=== PATIENT | female | born 1955 | race Caucasian/White ===

== ENCOUNTER → 2020-09-26 | Outpatient (CLI) | payer MEDICARE, OTHER ==
[~2020-09-26] MED LIST: ALLEGRA ALLERG180 MG PO; ALLEGRA180 MG PO; ASA5UEC PO; ASA81BEC PO; BENADRYL25 MG PO; CYCLOBENZAPRINE10 MG PO; FISH OIL 1,001000 M2 PO; FISHOIL; FLAXSEED OIL1000 MG PO; FLEXERIL PO; HYDROCODONE-AP1 EAC6 PO; IBUPROFEN; IBUPROFEN 200200 M1 PO; IBUPROFEN 600600 M1 PO; LEXAPRO 10 MG T10 M1 PO; LOPRESSOR PO; LOPRESSOR50 PO; MULTIVITAMINS PO; NITROGLYCERIN0.4 MG PO; NITROSTAT0.4 M1 SUBLING; OMEPRAZOLE20 MG PO; PANTOPRAZOLE SO40 M1 PO; PLAVIX 75 MG TA75 MG PO; PRISTIQ50 M1 PO; PROTONIX40 M1 PO; PROTONIX40 MG PO; RESTASIS1 EACH OP; SIMVASTATIN40 MG PO; TOPAMAX 25 MG T25 M1 PO; TOPROL XL25 MG PO; TOPROL XL50 MG PO; VITAMIN D3; VITAMIN D3400 UNI2 PO; VIVANCE PO; VYVANSE50 MG PO; VYVANSE60 MG PO; WELLBUTRIN XL150 MG; XANAX 0.5 MG0.5 MG PO
== END ==
LOC: M.MRI 07:31
PROVIDERS: ATTEND Family Medicine
DX: M43.16 Spondylolisthesis, lumbar region (principal); M51.36 Other intervertebral disc degeneration, lumbar region; M47.26 Other spondylosis with radiculopathy, lumbar region

== ENCOUNTER 2020-10-17 03:49 | Observation (INO) | payer MEDICARE, OTHER ==
[2020-10-17] VITALS (13 sets, daily range): BP systolic 116–143; BP diastolic 59–74
[~2020-10-17] VITALS: Ht 160 cm; Wt 61.2 kg
[2020-10-17] MEDS ORDERED: BENADRYL25 MG PO (04:01)
[2020-10-17 04:41] LABS: ABSOLUTE BASOPHILS 0.1 thou/uL (0.0-0.2); ABSOLUTE EOSINOPHILS 0.3 thou/uL (0.0-0.7); ABSOLUTE LYMPHOCYTES 1.9 thou/uL (0.8-5.3); ABSOLUTE MONOCYTES 0.5 thou/uL (0.0-1.2); ABSOLUTE NEUTROPHILS 2.1 thou/uL (1.6-8.1); EOSINOPHILS 6.9 %; HEMATOCRIT 41.2 % (37.0-47.0); LYMPHOCYTES 38.4 %; MCH 31.6 pg (26.0-34.0); MCV 92.9 fL (80.0-100.0); MONOCYTES 9.5 %; MPV 7.5 fl. (7.2-11.1); NUCLEATED RBCS 0 /100WBC; PLATELET COUNT* 173 thou/uL (150-400); POLYS 44.2 %; RBC 4.44 mil/uL (4.20-5.00); RDW-CV 13.6 % (10.5-14.5); WBC 4.8 thou/uL (4.0-11.0)
[2020-10-17 04:48] LABS: CALCIUM 8.4 mg/dL (8.5-10.1); CREATININE 0.9 mg/dL (0.6-1.3); POTASSIUM 3.9 mmol/L (3.5-5.1)
[2020-10-17 04:49] LABS: PROTIME 10.9 Seconds (9.20-11.50)
[2020-10-17 05:01] LABS: ALBUMIN 3.4 g/dL (3.4-5.0); MAGNESIUM 2.1 mg/dL (1.8-2.4); TOTAL BILIRUBIN 0.3 mg/dL (<0.1-1.0); TOTAL PROTEIN 6.8 g/dL (6.4-8.2)
[2020-10-17 07:33] LABS: URINE BILIRUBIN NEGATIVE (Negative); URINE BLOOD NEGATIVE (Negative); URINE CLARITY CLEAR; URINE COLOR YELLOW; URINE GLUCOSE-RANDOM NEGATIVE (Negative); URINE KETONES NEGATIVE (Negative); URINE LEUKOCYTES-REFLEX NEGATIVE (Negative); URINE NITRITE-REFLEX NEGATIVE (Negative); URINE PROTEIN NEGATIVE (Negative); URINE UROBILINOGEN 0.2 E.U./dl (0.2-1.0)
--- NOTE | 2020-10-17 11:39 | EKG ---
[place] [address] ELECTROCARDIOGRAM REPORT Name: NYASIA ROSA Room: [address] ADM IN .R.#: [id number] Admission: 10/17/20 Attend Phys: Luis Camarillo Discharge: Date of : 53 Date of Service: 10/17/20 0352 Report #: [id number] THIS REPORT FOR: //name// [facility] ED Test Date: 2020-10-17 Test Time: 03:52:14 Pat Name: NYASIA ROSA Department: Room: [facility] Gender: F [place] Technician: ROBERT : 1955 Requested By: Alma Ray Order Number: [id number] MD: Servando Markham Measurements Intervals [place] Rate: 57 P: 49 CA: 153 QRS: -26 QRSD: 92 T: 44 QT: 435 QTc: 424 Interpretive Statements Sinus rhythm Borderline left axis deviation Compared to ECG 02/11/2017 18:35:17 No significant changes Electronically Signed On 10-17-2020 11:39:00 CDT by Servando Markham [email or web address] <ELECTRONICALLY SIGNED> By: Servando Markham MD, FAC 10/17/20 1139 0352 [id number] Servando Markham MD, [facility] /EPI
[2020-10-17] MEDS ORDERED: MELOXICAM15 MG PO (11:40)
[2020-10-17] MEDS ORDERED: FLONASE 0.05%50 MCG NASAL (11:43)
--- NOTE | 2020-10-17 15:33 | CARD ---
[address] [address] CARDIAC CATH REPORT Name: NYASIA ROSA Room: [address] [place] .R.#: [id number] Admission: 10/17/20 Attend Phys: Chelsy Vaca Discharge: Date of : 53 Report #: [id number] THIS REPORT FOR: cc: Erasto Langley MD, Anthony MD Blick, David R. MD [facility] ~ APPROVED REPORT Study performed: 10/17/2020 12:57:44 Patient Details Patient Status: In-Patient Room #: The patient is a 64 year-old female Event Personnel Servando Markham Curb Attendant, Nikki Saini RN Towel Sorter, Kwame Swanson RTR Scrub, Stacy Gracia RTR Monitor Procedures Performed Art Access - R radial artery , Left Heart Cath w/or w/o Coronaries LHC , FFR , Hemostasis with Hemoband Indication Chest pain Risk Factors Cerebrovascular Disease, Hypercholesterolemia, Coronary Artery DiseaseHypertension Previous Procedures/Diagnoses Previous PCI Admission/Lab Medications/Medications given during procedure Heparin Unfract., Nitroglycerin IA 200 mcg, Verapamil IA 2.5 mg, Heparin IV 3100 units, Nitroglycerin IC 150 mcg, Adenosine IV 17 mg, Nitroglycerin IA 200 mcg, Verapamil IA 2.5 mg Procedure Narrative The patient was brought electively to the Cardiac Catheterization Laboratory and was prepped and draped in a sterile manner. The right wrist was infiltrated with 2% Lidocaine subcutaneous anesthesia. IV conscious sedation was used throughout procedure with appropriate monitoring and was performed in the presence of a registered nurse who was an independent trained [place] [address] CARDIAC CATH REPORT Name: NYASIA ROSA Room: [address]#: [id number] Admission: 10/17/20 Attend Phys: Chelsy Vaca Discharge: Date of : 53 Report #: [id number] performing the procedure. A 6F Slender Maunie sheath was inserted into the right radial artery. Coronary angiography was performed using coronary diagnostic catheters. The right coronary system was accessed and visualized with a 6FJR4 catheter. The left coronary system was accessed and visualized with a 6F JL3.5 and 6F JL4 catheter. The left ventricle was accessed and visualized with a 6F Pigtail catheter. Left ventricular/Aortic Valve gradient assessed via catheter pullback. Left ventriculogram was performed in EMMANUEL projection. Closure device was deployed with a 6 Fr Radial Vasc band 24 cm. The patient tolerated the procedure well and there were no complications associated with the procedure. There was no hematoma. Performed FFR on RCA. Baseline FFR= 0.91 After 2 minutes of IC Adensoine, FFR dropped to minimum of 0.86. Unable to cannulate LM with jl4 catheter. Intraoperative Conscious Sedation Sedation start time: 13:37 Case end Time: 14:16 Versed 1 mg Fluoro Time: 6.2 minutes Dose: DAP 11939 cGycm2 703 mGy Contrast Type and Amount: Omnipaque 80 ml Coronary Angiography The patient's coronary anatomy is right dominant. Diagnostic Cath Left Main 30% ostial stenosis LAD 60% proximal and 40% mid stenosis Circumflex 30% proximal stenosis Right Coronary Stent in proximal RCA had 0% restenosis. Distal to the edge of the stent there was a 60% stenosis in the mid RCA. 30% stenosis noted in the distal RCA Left Ventriculography The left ventricular ejection fraction is estimated to be 60-65%. Left ventricular wall motion abnormalities are not present. There is no mitral insufficiency. Hemodynamics The aortic pressure is 122/56 mmHg with a mean of 84 mmHg. The left ventricular pressure is 120/10 mmHg with a mean of mmHg. The left ventricular end diastolic pressure is 15 mmHg. There was no gradient across the aortic valve upon pullback[place] [address] CARDIAC CATH REPORT Name: NYASIA ROSA Room: [address]#: [id number] Admission: 10/17/20 Attend Phys: Chelsy Vaca Discharge: Date of : 53 Report #: [id number] ventricle to the aorta revealed no gradient across the aortic valve. PCI Technique Lesion Anticoagulation was achieved with Heparin. Percutaneous coronary intervention was performed on the proximal right coronary artery. The lesion stenosis prior to intervention was 60% with NIDIA 3 flow. A JR4 Guide Catheter was used to engage the RCA ostium. A Radi Interventional Guidewire was used to cross the lesion. POST STENT DEPLOYMENT BALLOON DILATION Patient was given 150 mcg of IC Nitroglycerin. After 2 minutes of IC Adenosine infusion, the baseline FFR of 0.91 dropped to a minimun of 0.86. Therefore, stenting was not performed Final angiography reveals 60 % stenosis with NIDIA 3 flow. Conclusion 1. 60% stenosis in the proximal LAD, and a 60% distal edge restenosis noted of a stent in the proximal RCA. 2. LVEF 60-65% 3. Minimal FFR was 0.85 after 2 minutes of IC Adenosine infusion of the RCA, therefore stenting was not performed. Recommendations Aggressive Medical Therapy <ELECTRONICALLY SIGNED> By: Servando Markham MD, [facility] 10/17/20 1533 1533 1533Dvinnie Markham MD, FACC /INF
--- NOTE | 2020-10-17 18:58 | NUR ---
RECEIVED REPORT FROM ER,RN. PT ARRIVED ON UNIT AROUND 1115. ADMIT DONE. PAPERS SIGNED IN CHART. IV INTACT. HEART MONITOR ATTACHED AT SR/SB. PT ABLE TO BE UP ADLIB. DR. NUNO SAW PT. NPO STATUS. CATH THIS AFTERNOON. NO STENTS PLACED. RAD STAT INTACT. DR NUNO OK FOR D/C THIS SHIFT. DR GONZALEZ NOTIFIED. D/C ORDERS RECEIVED. IV TAKEN OUT. HEART MONITOR OFF. MEDS GIVEN PER JUL. POST CATH VITALS CHARTED. DISCHARGE PACKET GIVEN TO FAMILY. COMMUNICATED UNDERSTANDING. WENT OVER RAD STAT PLACEMENT AND POST CATH INSTRUCTIONS. ALL AIR IN RAD STAT FULLY RELEASED. PT LEFT UNIT WITH ALL BELONGINGS AND NURSING STAFF AT 1854.
--- NOTE | 2020-10-18 11:30 | CON ---
[address] [address] CONSULTATION Name: NYASIA ROSA Room: [address] Walter Mcclain#: [id number] Admission: 10/17/20 Attend Phys: Chelsy Vaca Discharge: 10/17/20 Date of : 53 Report #: [id number] THIS REPORT FOR: cc: Erasto Langley MD, Anthony MD Blick, David R. MD [facility] ~ DOC #: [id number] cc: MD Servando Beth MD [facility] DATE OF CONSULTATION: 10/17/2020 HISTORY OF PRESENT ILLNESS: The patient is a 64-year-old single white female who I was asked to see in the hospital after she complained of chest pain. The patient notes in 2007 she had two coronary stents placed here at [facility]. However, she has not seen a properties supervisor for years. She has not had a stress test for years. Apparently, since that time, she had a TIA involving her speech and went to therapy. She had no recurrent episodes. Recently, she has been having lot of back pain and has been undergoing physical therapy. She is not very active because of the back pain. She does note she had awakened at 2:00 in the morning last night with the pain under her left breast. There was no radiation of the pain. She describes a pressure sensation. It did make her nauseated. She denies any shortness of breath, or diaphoresis. She was brought to the Emergency Room by ambulance. She was given nitroglycerin and the pain improved. She denies any recent fever, cough, bleeding, trauma to her chest, or rash. She denies an exertional dyspnea, palpitations, or syncope. PAST MEDICAL HISTORY: She has had cholecystectomy, carpal tunnel surgery, shoulder surgery, hypertension, hyperlipidemia, and TIA. No history of diabetes. CURRENT MEDICATIONS: Metoprolol, Zocor, and aspirin. ALLERGIES: SHE DOES HAVE AN ALLERGY TO CODEINE. FAMILY HISTORY: Her brother of a heart disease. SOCIAL HISTORY: She is , lives by herself in [place]. No smoking, alcohol abuse. REVIEW OF SYSTEMS: No history of asthma, liver disease, kidney disease, or cancer. She has a history of depression. No chronic skin condition. PHYSICAL EXAMINATION: GENERAL: Revealed a middle-aged female, lying in [place] [address] CONSULTATION Name: NYASIA ROSA Room: [address] Walter Mcclain#: [id number] Admission: 10/17/20 Attend Phys: Chelsy Vaca Discharge: 10/17/20 Date of : 53 Report #: [id number] distress. VITAL SIGNS: She had a blood pressure of 120/60, pulse 60. She is afebrile. HEENT: She was anicteric. Conjunctivae pink. Mucosa is moist. NECK: Veins not distended. No carotid bruits. Neck is supple. CHEST: Clear to auscultation. CARDIOVASCULAR: Regular rate and rhythm. No murmurs. ABDOMEN: Soft. EXTREMITIES: No edema. Posterior tibial pulse 2+ bilaterally. SKIN: Cool and dry. NEUROLOGIC: Nonfocal. LABORATORY DATA: ECG last night showed sinus bradycardia, left anterior fascicular block, incomplete right bundle-branch block. Her workup, she had an echocardiogram in 2017 that showed ejection fraction 60%. There was no evidence of a shunt. She had previous MRA of the carotid arteries in 2017 here at [facility] that showed no significant stenosis. Previous MRI of the brain back in 2017 showed small vessel changes. Her chest x-ray in the Emergency Room last night showed normal heart size, clear lung campbell. She actually had a CT scan of the abdomen because of her nausea last night that showed no acute abnormality. Her lab last night, sodium 139, creatinine 0.9. Her troponins was all less than 0.06. BNP 108 and LDL of 62 back in 2017. Her white blood cell count was 4.8 and hemoglobin 14. Her COVID antigen stat test last night was negative. PLAN: 1. Unstable angina. Previous stent. Recommend cardiac catheterization. 2. Hypertension. The patient is on beta [place]. 3. Hyperlipidemia. The patient is on a statin drug. 4. Previous TIA. No recurrent episodes on aspirin. 5. Chronic back pain. Servando Markham MD [facility] DRB/SIM/AMI <ELECTRONICALLY SIGNED> By: Servando Markham MD, [facility] 10/18/20 1130 1136 [id number] Markham MD, [facility] /nt
== END 2020-10-17 18:58 | disposition home or self-care (01) ==
LOC: M.ERS 03:49 → M.TBA-ER 08:05 → M.2W 08:05
PROVIDERS: Emergency Medicine; ADMIT Internal Medicine; ATTEND Internal Medicine
DX: I25.10 Atherosclerotic heart disease of native coronary artery without angina pectoris (principal); Z20.822 Contact with and (suspected) exposure to COVID-19; I10 Essential (primary) hypertension; E78.00 Pure hypercholesterolemia, unspecified; I63.9 Cerebral infarction, unspecified; E78.5 Hyperlipidemia, unspecified; Z79.82 Long term (current) use of aspirin; Z79.899 Other long term (current) drug therapy; Z86.73 Personal history of transient ischemic attack (TIA), and cerebral infarction without residual deficits